=== PATIENT | male | born 1975 | race Asian ===

== ENCOUNTER 2020-04-27 09:15 | Emergency (ER) | payer OTHER ==
[~2020-04-27] VITALS: Ht 188 cm; Wt 90.3 kg
--- NOTE | 2020-04-27 09:28 | NUR ---
PATIENT MONITOR: EKG DONE
--- NOTE | 2020-04-27 09:45 | NUR ---
GEOLOGICAL SPECIALIST: PT TO ROOM FROM GAURAV KATZ.
--- NOTE | 2020-04-27 09:51 | NUR ---
PT CAME IN CO OF CUNHA. PT STATES AFTER WORKING OUT ON TUESDAY, 04/25, HE FELT LIGHT HEADED AND PASSED OUT HITTING HIS HEAD ON THE CARPET. PT SAYS THAT HIS CUNHA AND NAUSEA HAS NOT GONE AWAY OVER THE PAST 2 DAYS. "IT FEELS LIKE SOMETHING IS IN MY HEAD. ITS HARD TO EXPLAIN" PT DENIES TAKING BLOOD THINNERS. PT AMBULATED TO ROOM. PT IS RESTING IN [facility] AND IS CONNECTED TO MONITORING EQUIPMENT.
[2020-04-27 11:08] VITALS: BP 119/61
[2020-04-27 11:27] LABS: BASOPHILS # (AUTO) 0.02 x10^3/uL (0-0.1); BASOPHILS % (AUTO) 0 % (0-1); EOSINOPHILS # (AUTO) 0.18 x10^3/uL (0-0.4); EOSINOPHILS % (AUTO) 3 % (1-7); LYMPHOCYTES # (AUTO) 1.93 x10^3/uL (1-3.4); LYMPHOCYTES % (AUTO) 31 % (22-44); MD NO; MEAN CORPUSCULAR HGB CONC 32.5 g/dL (33.2-36.2); MEAN PLATELET VOLUME 8.4 fL (7.4-10.4); MONOCYTES # (AUTO) 0.41 x10^3/uL (0.2-0.8); MONOCYTES % (AUTO) 7 % (2-9); NEUTROPHILS # (AUTO) 3.64 x10^3/uL (1.8-6.8); NEUTROPHILS % (AUTO) 59 % (42-75); PLATELET COUNT 171 x10^3/uL (130-400); RED BLOOD COUNT 4.88 x10^6/uL (4.38-5.82); RED CELL DISTRIBUTION WIDTH 13.5 % (9.4-14.8)
[2020-04-27 11:36] LABS: CALCIUM 9.2 mg/dL (8.5-10.1); CREATININE 1.05 mg/dL (0.7-1.3)
[2020-04-27 11:45] LABS: ANION GAP 4 mmol/L (5-15); CHLORIDE 108 mmol/L (98-107)
--- NOTE | 2020-04-27 12:12 | NUR ---
DISCHARGE INSTRUCTIONS REVIEWED
== END 2020-04-27 12:14 | disposition home or self-care (01) ==
LOC: ED 10:48
DX: S06.0X0A Concussion without loss of consciousness, initial encounter (principal); R55 Syncope and collapse; R07.9 Chest pain, unspecified; R11.0 Nausea; M10.9 Gout, unspecified; W22.8XXA Striking against or struck by other objects, initial encounter; Y93.89 Activity, other specified; Y92.098 Other place in other non-institutional residence as the place of occurrence of the external cause; Y99.8 Other external cause status
CPT/HCPCS: 36415; 70450; 80048; 85025; 93005; 99285